=== PATIENT | female | born 1965 | race Hispanic/Latino ===

== ENCOUNTER → 2024-09-18 | Outpatient (CLI) | payer MEDICAID ==
[2024-09-18 10:15] LABS: INR 1.01 (0.85-1.15)
--- NOTE | 2024-09-18 11:27 | NUR ---
U/S GD RT BREAST NODULE BX PROCEDURE PERFORMED BY DR WHITTEN. PUNCTURE SITE RT BREAST AND PATIENT TOLERATED PROCEDURE WELL. SPECIMEN X 4 COLLECTED AND SENT TO LAB. END OF PROCEDURE AT 1107. TISSUE MARKER DEPLOYED. BIOPSY NEEDLE REMOVED AND DRESSING APPLIED. NO BLEEDING NOTED. DISCHARGE INSTRUCTIONS GIVEN TO PATIENT AND VERBALIZED UNDERSTANDING. DISCHARGED VIA AMBULATORY. AAO X3 WITH NO C/O PAIN.
--- NOTE | 2024-09-18 14:01 | HMCIMG ---
Percutaneous ultrasound guided biopsy of right breast lesion at 6:00. With placement of a biopsy marker CLINICAL HISTORY: This patient has an right breast there is a hypoechoic mass measuring 1.38 x 1.01 x 1.62 cm. The risk and benefits of the biopsy was explained to the patient. PROCEDURE: Under ultrasound guidance the right breast lesion at 6:00 was localized. After sterile prep and drape 1% Xylocaine was used for local anesthetic. A 14-gauge Bard sheath was introduced and using a coaxial technique with 14-gauge Bard gun total of 4 core biopsies were obtained. Post biopsy through this sheath a biopsy marker was placed. The specimen was sent to laboratory for histology and cell block. Patient is to have unilateral right breast breast mammogram. IMPRESSION: Percutaneous ultrasound-guided biopsy of right breast lesion at 6:00 with placement of biopsy marker. Patient tolerated procedure well Patient is to have follow-up right breast unilateral mammogram.
== END | disposition home or self-care (01) ==
LOC: RAH 09:02
PROVIDERS: ATTEND Student in an Organized Health Care Education/Training Program
DX: D24.1 Benign neoplasm of right breast (principal); D48.61 Neoplasm of uncertain behavior of right breast; I10 Essential (primary) hypertension; N64.89 Other specified disorders of breast; E78.5 Hyperlipidemia, unspecified; Z79.01 Long term (current) use of anticoagulants; Z79.899 Other long term (current) drug therapy
CPT/HCPCS: 19083; 85610; 85730; 36415; 88305; A4215 ×2